=== PATIENT | female | born 1950 | race African-American/Black ===

== ENCOUNTER → 2018-02-18 | Outpatient (CLI) | payer OTHER ==
[~2018-02-18] MED LIST: CADUET 10 MG-41 EACH; CIPRO250 M2 PO; MEDROLDOSEPACK PO; NEXIUM20 MG; OXECTA5 MG PO; OXYCONTIN15 MG; PEPCID AC20 M1 PO; PERCOCET 5-3251 EACH PO; PYRIDIUM100 M1 PO; SENNA LAXATIVE8.6 MG PO; VISTARIL 25 MG25 M1 PO
== END ==
LOC: ULTRA 13:45
DX: R94.5 Abnormal results of liver function studies (principal)